=== PATIENT | male | born 1985 | race Caucasian/White ===

== ENCOUNTER 2020-12-20 14:32 | Emergency (ER) | payer SELFPAY ==
[2020-12-20] MEDS ORDERED: NAPROXEN500 MG PO (15:54)
== END 2020-12-20 15:59 | disposition home or self-care (01) ==
LOC: ER1 14:32
DX: M79.672 Pain in left foot (principal)
CPT/HCPCS: 73630; 99283

== ENCOUNTER 2021-08-22 00:20 | Emergency (ER) | payer OTHER ==
[~2021-08-22 00:20] MED LIST: NAPROXEN500 MG PO
[2021-08-22 00:56] LABS: HEMOGLOBIN 16.4 gm/dl (14.0-17.5); RED BLOOD COUNT 5.38 M/UL (4.20-5.50); WHITE BLOOD COUNT 14.5 K/UL (4.5-11.0)
[2021-08-22 01:37] LABS: BUN/CREATININE RATIO 10 (0-10)
== END 2021-08-22 03:55 | disposition home or self-care (01) ==
LOC: ER1 00:20
PROVIDERS: Physician Assistant
DX: U07.1 COVID-19 (principal); E86.0 Dehydration; I10 Essential (primary) hypertension; Z79.899 Other long term (current) drug therapy
CPT/HCPCS: 71045; 80053; 82550; 82553; 83874; 84439; 84443; 84484; 85025; 85379; 85652; 93005; 99285; Q9967; U0002